=== PATIENT | male | born 1940 | race Caucasian/White ===

== ENCOUNTER 2021-11-09 20:50 | Emergency (ER) | payer OTHER, SELFPAY ==
[2021-11-09 20:55] VITALS: BP 158/89; PULSE 91; RESP 18; TEMP 36.2; BMI 24.1
--- NOTE | 2021-11-09 21:47 | ED.WOUNDLAC ---
HPI - Wound/Laceration General Time Seen by Provider: 21:00 Date Seen: 11/09/21 Chief Complaint: Laceration/Wound Stated Complaint: Fall w/ arm lac Time Seen by Provider: 11/09/21 21:09 Source: patient, family and RN notes reviewed History of Present Illness HPI narrative: Marj is a very pleasant 80-year-old male with a history of Parkinson's disease and poor balance who fell tonight. Daughter states that her father was holding his arm when she arrived and she noted tissue and blood on a comforter. She then saw that he had a laceration that was large and C-shaped on his left forearm. Patient notes at this time that his pain is a 1. He has no numbness or tingling and he is able to move his arm without difficulty. He denies hitting his head and he is not have any neck pain. In regards to the fall he denies prodromal symptoms including chest pain, shortness of breath. He states that because of the Parkinson's is his balance is not good. He denies any other injury. Onset (ago): hour(s) Related Data Home Medications Medication Instructions Recorded Confirmed atorvastatin 20 mg tablet mg 11/09/21 carbidopa 25 mg-levodopa 100 mg tab 11/09/21 tablet prednisone 10 mg tablet mg 11/09/21 Allergies Allergy/AdvReac Type Severity Reaction Status Date / Time No Known Drug Allergies Allergy Verified 11/09/21 21:09 Review of Systems Narrative: Patient denies chest pain, shortness of breath, painful urination, cough, fever, headache, neck pain. [facility] Medical History (Updated 11/09/21 @ 23:13 by Porfirio Kay RN) No significant past medical history Surgical History (Updated 11/09/21 @ 23:14 by Porfirio Kay RN) No significant past surgical history Social History Smoking Status: Never smoker How often do you have a drink containing alcohol: never How often do you have six or more drinks on one occasion: Never AUDIT-C Alcohol total score: 0 Non-prescribed substance use: denies use Exam Narrative: Exam Narrative: Patient is alert and oriented. He is quite humerus. Answers questions appropriately. EOM is full. Head is atraumatic normocephalic. No pain with palpation over cervical midline. Heart with regular rate and rhythm and lungs are clear bilaterally. Palpation over the ribcage abdomen without discomfort. Abdomen is soft and nontender. Lower extremity show 1+ peripheral edema but no evidence of injury. On his left arm he has sustained a very large flap laceration measuring a total This is a full-thickness flap with underlying fascia covering muscle easily viewed. There did not appear to be any foreign bodies in this area. Const: Vital Signs, click to edit/add: Vital Signs - 24 hr 11/09/21 20:55 11/09/21 23:13 11/09/21 23:15 Temperature 97.2 F L 97.2 F L 97.2 F L Pulse Rate 89 Pulse Rate [Pulse Oximeter] 91 89 Respiratory Rate 18 18 18 Blood Pressure 135/79 Blood Pressure [Ri ght Upper Arm] 158/89 H 135/79 Course Vital Signs Vital signs: Initial Vital Signs Temperature 97.2 F L 11/09/21 20:55 Temperature Source Temporal Artery Scan 11/09/21 20:55 Pulse Rate 91 11/09/21 20:55 Respiratory Rate 18 11/09/21 20:55 Blood Pressure 158/89 H 11/09/21 20:55 Blood Pressure Mean 112 11/09/21 20:55 Blood Pressure Position Supine 11/09/21 20:55 Oxygen Delivery Method 11/09/21 20:55 Vital Signs Temperature 97.2 F L 11/09/21 20:55 Pulse Rate 91 11/09/21 20:55 Respiratory Rate 18 11/09/21 20:55 Blood Pressure 158/89 H 11/09/21 20:55 Temperature 97.2 F L 11/09/21 23:15 Pulse Rate 89 11/09/21 23:15 Respiratory Rate 18 11/09/21 23:15 Blood Pressure 135/79 11/09/21 23:15 MDM - Wound/Laceration MDM Narrative Medical decision making narrative: 1. Left forearm laceration-at this time patient has retained sensation and motor distally. He has significant ecchymosis in this area but is able to move his elbow without difficulty pronate and supinate. Do not feel a need to pursue x-rays at this time. Monitor for signs and symptoms of infection. Suture removal in 10 days time. Do not soak wound but may shower with wound in gently cleanse daily. 2. Fall-patient has no prodromal symptoms and unfortunately this is likely secondary to his parkinsonian syndrome. Patient is examined now that he is standing upright. No evidence of head trauma neck pain harrington on back. He has no new pain at this time. 3. Disposition-patient is discharged home in the care of his and his daughter. Medical Records Attestation: I reviewed the patient's medical records. Discharge Plan Discharge Clinical Impression: Laceration, Avulsion of skin Patient Disposition: Home w/ Parent or Adult Additional Instructions: Suture removal in 10 days time at the clinic. Monitor for infection. Seek medical attention for redness, drainage from the wound, fever or chills. Tylenol may be used as needed for discomfort. Return to the emergency room as needed. You may shower and gently pat this area dry. You can leave open to air as long as your not participating in activities in an unclean environment. If that is the case please cover. Prescriptions: No Action prednisone 10 mg tablet 0RF carbidopa-levodopa 25-100 mg tablet 0RF Label Comments: TAKE 1 TABLET BY MOUTH THREE TIMES DAILY BETWEEN 7AM AND 6PM atorvastatin 20 mg tablet 0RF Label Comments: TAKE 1 TABLET BY MOUTH AT BEDTIME Follow Up/Referrals: Dennys Colby MD [Primary Care Provider] - Stand Alone Forms: [facility] Info Instructions Procedures Laceration Laceration 1: Pre procedure diagnosis: Left dorsal forearm laceration Post procedure diagnosis: Left dorsal forearm laceration repair Site marking: not applicable Verification/time out: correct patient Name of person performing procedure: Rosana Jolley Site: upper extremity Size (cm): 17 Description: flap, irregular and clean Depth: simple, single layer (Involving the entire thickness of the skin.) Local Anesthetic: lidocaine 1% and with epi Amount of anesthesia used (mL): 6 Pre-repair: wound explored, irrigated extensively and deep structures intact Skin layer closed with: nylon Size (cm): 4-0 Number of sutures: 20 Technique: simple, interrupted Subcutaneous layer closed with: Vicryl Size: 4-0 and 5-0 Number of sutures: 7 Technique: simple, interrupted Conclusion: patient tolerated procedure
[2021-11-09 23:13] VITALS: BP 135/79; PULSE 89; RESP 18; TEMP 36.2
[2021-11-09 23:15] VITALS: BP 135/79; PULSE 89; RESP 18; TEMP 36.2
== END 2021-11-09 23:41 | disposition home or self-care (01) ==
LOC: ED 23:36
PROVIDERS: Emergency Provider Family Medicine; PCP Physician Assistant Medical
DX: S51.812A Laceration without foreign body of left forearm, initial encounter (principal); W18.00XA Striking against unspecified object with subsequent fall, initial encounter
CPT/HCPCS: 12002; 99283; 99284

== ENCOUNTER 2021-12-10 10:44 | Outpatient (CLI) | payer OTHER, SELFPAY ==
[2021-12-10 13:34] LABS: Chloride* 108 mmol/L (96-114); Potassium* 3.9 mmol/L (3.6-5.1); Sodium* 139 mmol/L (135-149)
[2021-12-10 13:37] LABS: Aspartate Amino Transferase* 24 U/L (12-35); Blood Urea Nitrogen* 24 mg/dL (7-30); Carbon Dioxide* 24 mmol/L (20-32); Estimated Glomerular Filt Rate 76 ml/min; Glucose* 125 mg/dL (60-115)
[2021-12-10 14:06] LABS: PSA Screen* 3.56 ng/mL (0.10-4.00)
[2021-12-11 10:57] LABS: LDL Cholesterol, Direct 81 mg/dL (0-129)
== END 2021-12-10 10:45 | disposition home or self-care (01) ==
PROVIDERS: PCP Physician Assistant Medical; Visit Provider Family Medicine
DX: G20 Parkinson's disease (principal); E78.5 Hyperlipidemia, unspecified; C61 Malignant neoplasm of prostate; L21.9 Seborrheic dermatitis, unspecified; B35.6 Tinea cruris
CPT/HCPCS: 80048; 83721; 84153; 84450

== ENCOUNTER 2022-02-17 12:43 | Outpatient (CLI) | payer OTHER, SELFPAY ==
--- NOTE | 2022-02-17 13:00 | CRLHL7_ITS ---
For Patients: As a result of the Century Cures Act, medical imaging exams and procedure reports are released immediately into your electronic medical record. You may view this report before your referring provider. If you have questions, please contact your health care provider. INDICATION: Parkinson`s TECHNIQUE: Noncontrast Sagittal T1,Axial FSE T2, Flair, DWI images submitted. No comparisons. FINDINGS: Moderate cerebral atrophy. The ventricles, sulci and gyri are of normal size, shape and contour for age and degree of atrophy. Midline structures are centrally located. No convincing evidence of suspicious intra- or extra-axial fluid collections. Moderate patchy regions of increased T2 signal within the periventricular and subcortical white matter of both cerebral hemispheres. On the diffusion-weighted sequences, there is evidence of T2 shine through within 2 lesions in the left posterior centrum semiovale. No convincing regions of restricted diffusion. IMPRESSION: 1. No convincing radiographic evidence of acute intracranial abnormalities. 2. Moderate cerebral atrophy. 3. Moderate supratentorial white matter changes that are non-specific, but statistically most likely related to chronic small vessel ischemic disease. Dictated by Claudio Collins MD @ 02/17/2022 2:08:46 PM (Electronically Signed)
== END 2022-02-17 12:44 | disposition home or self-care (01) ==
LOC: MRI 12:44
PROVIDERS: PCP Physician Assistant Medical; Visit Provider Psychiatry & Neurology Neurology
DX: G20 Parkinson's disease (principal); G31.9 Degenerative disease of nervous system, unspecified; I67.82 Cerebral ischemia
CPT/HCPCS: 70551

== ENCOUNTER 2022-06-17 11:14 | Outpatient (CLI) | payer OTHER, SELFPAY ==
[2022-06-17 14:44] LABS: PSA Screen* 4.59 ng/mL (0.10-4.00)
== END 2022-06-17 11:15 | disposition home or self-care (01) ==
LOC: FRMREF 11:14
PROVIDERS: PCP Physician Assistant Medical; Visit Provider Physician Assistant Medical
DX: C61 Malignant neoplasm of prostate (principal)
CPT/HCPCS: 84153

== ENCOUNTER 2022-11-21 16:58 | Inpatient (IN) | payer OTHER, SELFPAY ==
[2022-11-21] VITALS (16 sets, daily range): BP systolic 121–180; BP diastolic 62–100; PULSE 67–102; RESP 18–22; TEMP 36.5–36.9; O2SAT 92–98; BMI 25.4
--- NOTE | 2022-11-21 17:14 | ED.GENADULT ---
HPI - General Adult General Chief complaint: Seizure Stated complaint: Seizure Time Seen by Provider: 11/21/22 17:14 History of Present Illness HPI narrative: history of parkinson's, non verbal. lives in assisted living with partner. history of seizures with unknown etiology. no plans or meds for recurrent seizures. last seizure 3 months ago. today has had 3 81-year-old man presenting to the emergency department with his daughter with a concern of a seizure. Actually noting 3 episodes today. Underlying history of Parkinson's versus supraventricular palsy. Daughter shortly before arrival was attending to him in his assisted living residence where he was sitting in his wheelchair and suddenly catching his breath in and stiffening. He was unresponsive. She thinks that this episode may have lasted as long as 2 minutes but admits she was a little flustered; my paraphase. She called help and apparently took 45 minutes for any staff to arrive. Otherwise was in usual state of health which does include nonverbal Parkinson's. He had however had 2 episodes earlier in the day 1 of which while attempting to ambulate with his walker and did go down. Was not observed to have hit his head. Apparently does have a history of seizure-like events. Was admitted in March of last year to [facility] for unresponsive episodes. Reviewing the discharge summary did have and unremarkable MRI at that time. And apparently, per daughter, Mr. Lee bah has made the decision not to be treated for potential seizures. At this point given this being the 3rd episode today this concern of him actually being able to be in his current place of residence. Has in the past he is even more out of it than associated with usual parkinsonian dementia. Reviewing consultation from last clinic visit in June suggestion was made though that if he had further episodes to initiate levetiracetam. Does have a history of frequent falls in the setting of suspected Parkinson's. Resides with spouse who has Parkinson's. Related Data Home Medications Medication Instructions Recorded Confirmed cholecalciferol (vitamin D3) 125 5,000 unit PO DAILY 12/10/21 11/22/22 mcg (5,000 unit) tablet Previous Rx's Medication Instructions Recorded atorvastatin 20 mg tablet 20 mg PO QPM #90 tabs 12/10/21 carbidopa 25 mg-levodopa 100 mg 1 tab PO TID #270 tabs 12/10/21 tablet metronidazole 1 % topical gel 1 applic topical QDAY #60 grams 10/09/22 acetaminophen 325 mg tablet 650 mg (2 x 325 mg) PO QID PRN 11/25/22 #100 tabs levetiracetam 500 mg tablet 500 mg PO BID #60 tabs 11/25/22 nystatin 100,000 unit/gram topical 1 applic topical TID #45 grams 11/25/22 cream omeprazole 20 mg capsule,delayed 20 mg PO DAILY@0700 #30 caps 11/25/22 release Allergies Allergy/AdvReac Type Severity Reaction Status Date / Time No Known Drug Allergies Allergy Verified 11/18/22 10:27 Review of Systems Status of ROS: Reports: unobtainable due to medical condition [facility] Medical History (Updated 11/26/22 @ 00:01 by Background Daerica) Episode of altered consciousness ?R40.4 - Transient alteration of awareness (ICD-10) Snoring ?R06.83 - Snoring (ICD-10) GI bleed ?K92.2 - Gastrointestinal hemorrhage, unspecified (ICD-10) Altered mental status ?R41.82 - Altered mental status, unspecified (ICD-10) Seizure disorder ?G40.909 - Epilepsy, unspecified, not intractable, without status epilepticus (ICD-10) Repeated falls ?R29.6 - Repeated falls (ICD-10) Gait instability ?R26.81 - Unsteadiness on feet (ICD-10) Parkinson's disease ?G20 - Parkinson's disease (ICD-10) 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 - Progressive supranuclear ophthalmoplegia [Tobkqg-Kfafvncyjd-Bylvmnnio] (ICD-10) History of stroke ?Z86.73 - Personal history of transient ischemic attack (TIA), and cerebral infarction without residual deficits (ICD-10) Seborrheic dermatitis ?L21.9 - Seborrheic dermatitis, unspecified (ICD-10) Malignant neoplasm of prostate ?C61 - Malignant neoplasm of prostate (ICD-10) Hyperlipidemia ?E78.5 - Hyperlipidemia, unspecified (ICD-10) Herpes zoster ?B02.9 - Zoster without complications (ICD-10) Back pain ?M54.9 - Dorsalgia, unspecified (ICD-10) Surgical History History of total right knee replacement ?Z96.651 - Presence of right artificial knee joint (ICD-10) No significant past surgical history Family History Mother Cancer Father Renal failure Uncle Renal failure Social History (Updated 11/21/22 @ 20:24 by Gerber Cade MD) Narrative: Lives in assisted living, [place], [place], with his significant other, Ellie. has 2 children- 1 son, 1 daughter. Daughter, Elda Espinoza) is POA, cell phone [phone]. Has DNR/DNI resuscitation status. former smoker. regular alcohol consumption- 2-4 beers. What is your current living situation?: I presently have a place to live Problems where you live: unable to answer Problems where you live details: [facility] In the past 12 months, utilities in danger of being shut off: unable to answer In the past 12 mos, have been you worried that your food would run out before you had money to buy more?: unable to answer In the past 12 mos, the food you bought just didn't last and you didn't have money to buy more?: unable to answer Highest level of school completed/degree received: Bachelor's degree Smoking Status: Former smoker Do you use any of these nicotine containing products: None Second hand tobacco smoke exposure: No How often do you have a drink containing alcohol: never How often do you have six or more drinks on one occasion: Never AUDIT-C Alcohol total score: 0 Non-prescribed substance use: denies use Caffeine: Yes How often does anyone, including family, friends and others, physically hurt you: unable to answer How often does anyone, including family, friends and others, insult or talk down to you: unable to answer How often does anyone, including family, friends and others, threaten you with harm: unable to answer How often does anyone, including family, friends and others, scream or curse at you: unable to answer Little interest or pleasure in doing things: more than half the days service: No Exam Narrative: Exam Narrative: Blunted affect. Frequently closes eyes has of tired. Breathing easily. Does at 1 point started coughing due to what appears to be some congestion in his throat. Lungs appear to be clear though not exactly coordinated effort along for optimal auscultation. CV is in a regular rate and rhythm. Lower extremities are without edema. Seems fatigued but alerts quickly to follow directions. While general little stiff is able to move all extremities without difficulty. Well perfused. Cranial nerves 2-12 look to be intact. Oropharynx is free of injury. Const: Vital Signs, click to edit/add: Vital Signs - 24 hr 11/21/22 17:05 11/21/22 17:57 11/21/22 18:00 Temperature 97.7 F Pulse Rate 70 67 Pulse Rate [Right Pulse Oximeter] 78 Respiratory Rate 18 Blood Pressure Blood Pressure [Ri ght Upper Arm] 128/86 Pulse Oximetry 93 92 94 Oxygen Delivery Me thod Room Air 11/21/22 18:02 11/21/22 18:15 11/21/22 18:30 Temperature Pulse Rate 73 78 79 Pulse Rate [Right Pulse Oximeter] Respiratory Rate Blood Pressure 124/67 Blood Pressure [Ri ght Upper Arm] Pulse Oximetry 94 95 98 Oxygen Delivery Me thod Documenting provider has reviewed patient's vital signs: yes Course Course Hospital Course: 81-year-old male admitted to the hospital having had 3 episodes of loss of consciousness prior to admission. Patient had observed episodes where he lost consciousness, became rigid but without shaking. These were all while he was upright and they were all self-limited. Had similar episodes where he was hospitalized at [facility] last winter and had an unremarkable EEG at that time. After consultation with Neurology decision was made to initiate Keppra for possible seizure disorder. He was observed in the hospital without further episodes. He was however found to be fairly disabled from neurologic disease and felt that he needed a higher level of care. 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 Clinically it appears that he has progressive supranuclear palsy as the primary cause of his disability. In light of this he he and his daughter have agreed to moved to palliative care and our enrolling in hospice. A time admission he was found to have melanotic stools that were guaiac positive. Hemoglobin is monitored and had a small drop in his hemoglobin but no significant hypotension. Initial plan was to evaluate with upper endoscopy but after discussion with his daughter about goals of care the decision was made to simply treat him for upper GI bleeding with a proton pump inhibitor and to stop his aspirin and ibuprofen. No further evaluation at this time is warranted. Vital Signs Vital signs: Initial Vital Signs Temperature 97.7 F 11/21/22 17:05 Temperature Source Temporal Artery Scan 11/21/22 17:05 Pulse Rate 78 11/21/22 17:05 Respiratory Rate 18 11/21/22 17:05 Blood Pressure 128/86 11/21/22 17:05 Blood Pressure Mean 100 11/21/22 17:05 Blood Pressure Position Sitting 11/21/22 17:05 Pulse Oximetry 93 11/21/22 17:05 Oxygen Delivery Method Room Air 11/21/22 17:05 Vital Signs Temperature 97.7 F 11/21/22 17:05 Pulse Rate 78 11/21/22 17:05 Respiratory Rate 18 11/21/22 17:05 Blood Pressure 128/86 11/21/22 17:05 Pulse Oximetry 93 11/21/22 17:05 Oxygen Delivery Method Room Air 11/21/22 17:05 Temperature 98.3 F 11/25/22 11:05 Pulse Rate 85 11/25/22 11:05 Respiratory Rate 18 11/25/22 11:05 Blood Pressure 140/77 H 11/25/22 11:05 Pulse Oximetry 96 11/25/22 11:05 Oxygen Delivery Method Room Air 11/25/22 11:05 Medical Decision Making MDM Narrative Medical decision making narrative: It sounds as though he would be unsafe to go back to current living situation at the moment. I would anticipate admission. Will evaluate though for other abnormalities in the labs. Looking for sources of infection, potential sepsis. Given recent imaging lack of recent head injury do not think that further head imaging is necessary. Unclear to me if this is one of those undefinable episodes not infrequent in Parkinson's (though on review of records it looks like supranuclear palsy is a leading/likely diagnosis) or whether more of a seizure-like activity. In March of last year EEG testing was unremarkable. Would want to evaluate for potential aspiration event. Chest x-ray by my read is unremarkable. No events on digital cartographic technician. Labs are overall reassuring. Urine is concentrated but without evidence of infection. Discussed with hospitalist for admission further evaluation. Medical Records Medical records reviewed: Yes I reviewed the patient's medical records Lab Data Lab results reviewed: Yes I reviewed the patient's lab results Labs: Lab Results 11/21/22 11/21/22 Range/Units 10:30 18:02 WBC 8.28 (4.50-11.00) K/uL RBC 4.17 L (4.30-5.90) m/uL Hgb 12.7 L (13.5-17.5) gm/dL Hct 37.3 (37.0-53.0) % MCV 89 (80-100) fL MCH 31 (26-34) pg MCHC 34 (32-36) gm/dL RDW Coeff of Alyssa 14.3 (11.5-15.5) % Plt Count 171 (140-440) K/uL Neut % (Auto) 85.6 H (42.0-72.0) % Lymph % (Auto) 8.6 L (20-44) % [place] % (Auto) 5.3 (0.0-11.0) % Eos % (Auto) 0.0 (0.0-7.0) % Baso % (Auto) 0.0 (0.0-3.0) % Neut # (Auto) 7.10 H (1.7-7.0) K/uL Lymph # (Auto) 0.70 L (0.90-2.90) K/uL [place] # (Auto) 0.40 (0.00-0.90) K/UL Eos # (Auto) 0.00 (0.00-0.50) K/uL Baso # (Auto) 0.00 (0.00-0.30) K/uL Abs Immat Gran (auto) 0.04 (0.00-0.30) K/uL Imm/Tot Granulo (auto) 0.5 % Diff Slide Review Acceptable Review (Acceptable) VBG pH 7.397 (7.32-7.43) VBG pCO2 35 L (40-50) mmHG VBG pO2 27.8 (25-47) mmHG VBG HCO3 22 (21-28) mmol/L Sodium 138 (135-149) mmol/L Potassium 3.9 (3.6-5.1) mmol/L Chloride 110 (96-114) mmol/L Carbon Dioxide 20 (20-32) mmol/L BUN 47 H (7-30) mg/dL Creatinine 1.0 (0.5-1.5) mg/dL Estimated GFR 75 ml/min Glucose 151 H (60-115) mg/dL Lactate 1.7 (0.5-1.9) mmol/L Calcium 9.1 (8.4-10.6) mg/dL Magnesium 1.8 (1.5-2.6) mg/dL Troponin I 0.02 (0.01-0.04) ng/mL C-Reactive Protein 0.7 (0.5-1.0) mg/dL NT-Pro-B Natriuret Pep 141 pg/mL Urine Color Yellow (Yellow) Urine Appearance Clear (Clear) Urine pH 5.5 (5.0-8.5) Ur Specific [place] >= 1.030 (1.000-1.030) Urine Protein Negative (Negative) Urine Glucose (UA) Negative (Negative) Urine Ketones Negative (Negative) Urine Blood Negative (Negative) Urine Nitrite Negative (Negative) Urine Bilirubin Negative (Negative) Urine Urobilinogen 0.2 (0.2-1.0) Ur Leukocyte Esterase Negative (Negative) Urine RBC 0-2 (0-2) Urine WBC 0-2 (0-5) Ur Squamous Epith Cells None (None-Few) Urine Bacteria None (None) Urine Yeast Few A (None) ECG Data Attestation: I personally reviewed and interpreted this ECG as follows: (Normal sinus LVH? rate of 75) Discharge Plan Discharge Clinical Impression: Episode of altered consciousness Patient Disposition: Admitted As Observation Condition: Stable Activity Level: Up with assist and Use Walker Discharge Diet: Regular
--- NOTE | 2022-11-21 17:41 | CRLHL7_ITS ---
For Patients: As a result of the Century Cures Act, medical imaging exams and procedure reports are released immediately into your electronic medical record. You may view this report before your referring provider. If you have questions, please contact your health care provider. INDICATION: Look for aspiration pneumonia TECHNIQUE: Chest 1 view. COMPARISON: None. FINDINGS: Cardiovascular and mediastinum: Heart size and vasculature are normal in caliber and appearance. Mediastinum is within normal limits. Lungs and pleural space: Lungs are clear. No sign of infiltrate or mass. No sign of pleural effusion. No pneumothorax. Bones and soft tissues: No significant findings. IMPRESSION: Unremarkable chest. Dictated by: Shekhar Adan MD @ 11/21/2022 18:08:20 (Electronically Signed)
--- OUTSIDE RECORDS SUMMARY | 2022-11-21 17:52 | XMS_ITS | Continuity of Care Document ---
Author Name Unknown Organization [facility] Address [address] [place] [address] Phone Care Team Providers Care Manager Paper Name Role Phone Dennis Verdin Unavailable Unavailable Allergies, Adverse Reactions, Alerts Substance Reaction Status Criticality No Known Allergies Active No Inform ation Medications Medication Instructions Dosage Effective Dates (start - stop) Status Comments CARBIDOPA-LEVODOPA (unknown strength) Not Available - Active ATORVASTATIN CALCIUM (unknown strength) Not Available - Active Procedures Procedure Date Office/Outpatient Visit,[facility] 2020 Advance Directives Directive Yes / No Effective Date File Name No Information Encounters Encounter Description Practice Location Reason(s) For Visit Diagnoses Date Provider Providers Copied on Encounter Office/Outpati ent Visit,[facility], [address], [place], [place], [id number], [place] tel:[phone] [facility] [place] Other spondylosis , lumbar regionLow back pain Zi Collins. [facility], [address] [place] [address], [place] [address], [place], [place], [id number], [place]. tel:[phone] Referring Provider: Dennis Meza, [facility] [address], [facility] [address], [place], [address]. tel:[phone] Family History Family Member Type Diagnosis Age At Onset No Information Payers Payer name Insurance type Covered constitution party ID Authoriza tion(s) [employer] Medicare Gold Choice Rin CHEEMA [id number] Social History Type Description Quantity Date Captured Comments Alcohol Use Details Unknown Caffeine Use Details Unknown Tobacco Use Status Ex-cigarette smoker Smoking Status Former smoker Smoking Tobacco Use Details Cigarette: No Details Available Cigarette: No Details Available Sex Male Vital Signs Date / Time: Height Weight BMI Pulse Rate Blood Pressure Temperature Respiratory Rate Body Surface Area Head Circumference Head Circ. Percentile Wt./Chaka. Percentile BMI percentile Pulse Ox Inhaled Ox 10:29 AM 65.00 in 77.927 kg (171.80 lbs) 28.5 9 kg/m eter (2) Chief Complaint And Reason For Visit No Information Reason For Referral Reason For Referral No Information History Of Present Illness Encounter Date Complaint History Of Prese nt Illness No Information Functional Status Date Functional Assessmen t No Information Instructions Date Instruction Additional Infor mation No Information Assessments Type Assessment Date assessment Other spondylosis, lumbar region assessment Low back pain Patient Care Teams Name Effective Dates (start - stop) Status Members No Information
--- OUTSIDE RECORDS SUMMARY | 2022-11-21 17:52 | XMS_ITS | Continuity of Care Document ---
Author Name Unknown Organization [facility] Address [address] [place] [address] Phone Care Team Providers Care Blank Driller Name Role Phone Dennis Verdin Unavailable Unavailable Allergies, Adverse Reactions, Alerts Substance Reaction Status Criticality No Known Allergies Active No Inform ation Medications Medication Instructions Dosage Effective Dates (start - stop) Status Comments CARBIDOPA-LEVODOPA (unknown strength) Not Available - Active ATORVASTATIN CALCIUM (unknown strength) Not Available - Active Procedures Procedure Date Office/Outpatient Visit,[facility] 2020 Advance Directives Directive Yes / No Effective Date File Name No Information Encounters Encounter Description Practice Location Reason(s) For Visit Diagnoses Date Provider Providers Copied on Encounter Office/Outpati ent Visit,[facility], [address], [place], [place], [id number], [place] tel:[phone] [facility] [place] Other spondylosis , lumbar regionLow back pain Zi Collins. [facility], [address] [place] [address], [place] [address], [place], [place], [id number], [place]. tel:[phone] Referring Provider: Dennis Meza, [facility] [address], [facility] [address], [place], [address]. tel:[phone] Family History Family Member Type Diagnosis Age At Onset No Information Payers Payer name Insurance type Covered green party ID Authoriza tion(s) [employer] Medicare Gold Choice Rin CHEEMA [id number] Social History Type Description Quantity Date [...]
[2022-11-21] MEDS: 0.9 % SODIUM CHLORIDE 1000 ml 1,000 ML IV (17:54)
[2022-11-21 18:11] LABS: HCO3 VBG 22 mmol/L (21-28); Lactate* 1.7 mmol/L (0.5-1.9); PCO2 VBG 35 mmHG (40-50); PO2 VBG 27.8 mmHG (25-47); pH VBG 7.397 (7.32-7.43)
[2022-11-21 18:18] LABS: Hematocrit 37.3 % (37.0-53.0); Hemoglobin* 12.7 gm/dL (13.5-17.5); Immature Granulocytes Abs Auto 0.04 K/uL (0.00-0.30); Immature Granulocytes Pct Auto 0.5 %; Lymphocytes Percent Auto 8.6 % (20-44); Mean Corpuscular HGB Conc 34 gm/dL (32-36); Mean Corpuscular Hemoglobin 31 pg (26-34); Mean Corpuscular Volume 89 fL (80-100); Monocytes Percent Auto 5.3 % (0.0-11.0); Neutrophils Percent Auto 85.6 % (42.0-72.0); Platelet Count* 171 K/uL (140-440); RDW Coefficient of Variation % 14.3 % (11.5-15.5); Red Blood Count 4.17 m/uL (4.30-5.90); White Blood Count* 8.28 K/uL (4.50-11.00)
[2022-11-21 18:20] LABS: Slide Review Reflex Yes
[2022-11-21 18:29] LABS: Chloride* 110 mmol/L (96-114); Potassium* 3.9 mmol/L (3.6-5.1); Sodium* 138 mmol/L (135-149)
[2022-11-21 18:31] LABS: Estimated Glomerular Filt Rate 75 ml/min
[2022-11-21 18:32] LABS: Blood Urea Nitrogen* 47 mg/dL (7-30); Carbon Dioxide* 20 mmol/L (20-32)
[2022-11-21 18:33] LABS: Calcium* 9.1 mg/dL (8.4-10.6); Glucose* 151 mg/dL (60-115); Magnesium* 1.8 mg/dL (1.5-2.6)
[2022-11-21 18:35] LABS: C Reactive Protein* 0.7 mg/dL (0.5-1.0)
[2022-11-21 18:44] LABS: Troponin I* 0.02 ng/mL (0.01-0.04)
--- NOTE | 2022-11-21 18:47 | ED.NURSE ---
christiane garibay aware of admission.
[2022-11-21 18:50] LABS: NT Pro B Type NatriureticPept* 141 pg/mL
[2022-11-21 19:12] LABS: Slide Review Acceptable Review (Acceptable)
--- NOTE | 2022-11-21 19:51 | ED.NURSE ---
report was given to trino ellison. admission on hold for now as dr hooper spoke to Elda about admission as she is wanting a neuro consult.
--- NOTE | 2022-11-21 20:59 | PM.IMHP1 ---
Hospitalist- H&P: GABRIELA History of Present Illness Time Seen by Provider: 19:30 Date Seen: 11/21/22 Chief complaint: Seizure Narrative: Valerio Malik is a 81 year old man who was in his usual state of health until this morning. His usual state of health is fragile. He is known to have progressive supranuclear palsy verses Parkinson's disease. He is known to have frequent falls. Very unsteady gait. At times uses wheelchair for locomotion. Becoming progressively less verbal. He lives in a assisted living facility called [facility] in [place], [place], with his significant other, Ellie. His daughter, Elda, is his power of divorce attorney for health. This morning around 0830 he was sitting on the toilet. His significant other, Ellie, heard him gasping in the bathroom. She went to assess him and found him with his head tilted backward, gasping type breathing, unresponsive. Did not have clonic movements. She described more of a tonic posturing. He did not fall. Did not strike his head. Had no injuries. Episode lasted less than 3 minutes. Subsequently had decreased awareness and interaction for roughly 10 minutes. There was no on else around to witness or help during this episode. Obviously this episode occurred as he was in the process of urinating and or defecating. This afternoon around 1330 he seemed to have another similar episode. he was in the process of walking from the living room and suddenly fell. Again his neck arched backwards And he seemed to gasp as he was breathing. this time there was staff from the assisted living facility available to help. Staff subsequently helped him into his wheelchair. Again he had less awareness and interaction for a period of time subsequent to this episode. Reportedly did not have any micturition or defecation with this episode. Sometime between 1500 and 1530 this afternoon he had another episode. This episode was witnessed again by Ellie, the patient's daughter, Elda, and Ellie's daughter, Jen. again he had a episode of neck arching with gasping breathing. Episode lasted less than 3 minutes. Subsequently had 10 minutes of decreased responsiveness with eyes closed. No reported micturition or defecation with this episode. At this juncture the family opted to have him further assessed. He was thus transported to the emergency department at [facility]. In March 2022 patient had a similar episode. Was unresponsive, staring straight ahead, for about 45 minutes. No recall of the episode. Admitted to [facility]. Prolonged EEG monitoring for 32 hours was negative. Cause of spell was unclear. Decision was made to follow clinically. His daughter, Elda, believes that the patient may have had a similar episode subsequent to that when he was in a transitional care unit after that particular hospitalization. Patient was seen by his neurologist, Dr. Lloyd Luis, [facility], 07/02/2022. MRI on that date demonstrated mid brain atrophy consistent with progressive supranuclear palsy. 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 At that time the decision was made to continue to monitor him but if he should have another spell Dr. Luis recommended initiation of the levetiracetam. Has not had any recent unusual trauma or injury aside from the occasional falling that he has. No head injuries. No fevers, rigors, diaphoresis. No dysuria, urgency, frequency, hematuria. No diarrhea or constipation. No skin infections. No cough or shortness of breath. No other focal or localizing symptoms. Review of Systems Status of ROS: Reports: 10 or more systems reviewed and unremarkable except as noted in History and below Narrative: Ellie and Jen note that over the last 2 weeks he has been having more episodes and lasting longer when he does not seem to be tracking. He has had these episodes for some time but they seem to be increasing in frequency and duration over the last 2 weeks. [facility] Medical History (Updated 11/21/22 @ 21:38 by Gerber Cade MD) Repeated falls ?R29.6 - Repeated falls (ICD-10) Gait instability ?R26.81 - Unsteadiness on feet (ICD-10) Parkinson's disease ?G20 - Parkinson's disease (ICD-10) 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 - Progressive supranuclear ophthalmoplegia [[id number]-[id number]] (ICD-10) History of stroke ?Z86.73 - Personal history of transient ischemic attack (TIA), and cerebral infarction without residual deficits (ICD-10) Seborrheic dermatitis ?L21.9 - Seborrheic dermatitis, unspecified (ICD-10) Malignant neoplasm of prostate ?C61 - Malignant neoplasm of prostate (ICD-10) Hyperlipidemia ?E78.5 - Hyperlipidemia, unspecified (ICD-10) Herpes zoster ?B02.9 - Zoster without complications (ICD-10) Back pain ?M54.9 - Dorsalgia, unspecified (ICD-10) Surgical History History of total right knee replacement ?Z96.651 - Presence of right artificial knee joint (ICD-10) No significant past surgical history Family History Mother Cancer Father Renal failure Uncle Renal failure Social History (Updated 11/21/22 @ 20:24 by Gerber Cade MD) Narrative: Lives in [place], [place], with his significant other, Ellie. has 2 children- 1 son, 1 daughter. Daughter, Elda Espinoza) is POA, cell phone [phone]. Has DNR/DNI resuscitation status. former smoker. regular alcohol consumption- 2-4 beers. What is your current living situation?: I presently have a place to live Problems where you live: unable to answer Problems where you live details: [facility] In the past 12 months, utilities in danger of being shut off: unable to answer In the past 12 mos, have been you worried that your food would run out before you had money to buy more?: unable to answer In the past 12 mos, the food you bought just didn't last and you didn't have money to buy more?: unable to answer Highest level of school completed/degree received: Bachelor's degree Smoking Status: Former smoker Do you use any of these nicotine containing products: None Second hand tobacco smoke exposure: No How often do you have a drink containing alcohol: never How often do you have six or more drinks on one occasion: Never AUDIT-C Alcohol total score: 0 Non-prescribed substance use: denies use Caffeine: Yes How often does anyone, including family, friends and others, physically hurt you: unable to answer How often does anyone, including family, friends and others, insult or talk down to you: unable to answer How often does anyone, including family, friends and others, threaten you with harm: unable to answer How often does anyone, including family, friends and others, scream or curse at you: unable to answer Little interest or pleasure in doing things: more than half the days service: No Meds Home Medications and Allergies Home Medications Medication Instructions Recorded Confirmed Type cholecalciferol (vitamin D3) 125 5,000 unit PO DAILY 12/10/21 11/18/22 History mcg (5,000 unit) tablet ibuprofen 200 mg tablet (Advil) 400 mg PO Q8H PRN 12/10/21 11/18/22 History aspirin 81 mg tablet,delayed 81 mg PO QDAY 11/18/22 11/21/22 History release Allergies Allergy/AdvReac Type Severity Reaction Status Date / Time No Known Drug Allergies Allergy Verified 11/18/22 10:27 Exam Narrative: Exam Narrative: Examine the patient as he is laying in a semi recumbent position on the exam table in the emergency department. He appears comfortable and in no acute distress. Speaks in a very soft, quiet voice. Able to answer only a few questions with yes and no. Does not speak in sentences. Appears somewhat anxious. Keeps changing his position. Vision and hearing are grossly normal. Alert and oriented to self, recognizes Ellie and Jen. Able to tell me he is in the hospital. Not oriented to time or situation. Does not know how he ended up here in the hospital. Tympanic membranes are normal. Midline nasal septum. Dry buccal mucosa. Dentition in only fair repair. No obvious tongue or mucosal lesions. Smell of breath is very strong consistent with dehydrated state. No icterus or conjunctival injection. Neck is supple. Midline trachea. No JVD, hepatojugular reflux, or carotid bruits. No head neck lymphadenopathy. Lungs are clear to auscultation. Chest wall excursions are full. No tenderness to percussion over his spine or CVA area. Heart tones with regular rhythm, normal S1-S2, without murmur, gallop, or rub. Abdomen with active bowel sounds, soft, nontender. No organomegaly or masses. Extremities without edema. Does have superficial skin abrasion over the left kneecap. Has a few areas of scattered ecchymosis on lower extremities. Moves joints of fingers, wrists, elbows, shoulders, hips, knees, ankles, and toes. Generally speaking, tone is increased to movement. Follows simple 1 step commands. Cranial nerves 3-12 grossly normal. Const: Vital Signs, click to edit/add: Vital Signs - 24 hr 11/21/22 17:05 11/21/22 17:57 11/21/22 18:00 Temperature 97.7 F Pulse Rate 70 67 Pulse Rate [Right Pulse Oximeter] 78 Respiratory Rate 18 Blood Pressure Blood Pressure [Ri ght Upper Arm] 128/86 Pulse Oximetry 93 92 94 [facility] 11/21/22 18:02 11/21/22 18:15 11/21/22 18:30 Temperature Pulse Rate 73 78 79 Pulse Rate [Right Pulse Oximeter] Respiratory Rate Blood Pressure 124/67 Blood Pressure [Ri ght Upper Arm] Pulse Oximetry 94 95 98 [facility] 11/21/22 18:34 11/21/22 18:45 11/21/22 19:00 Temperature Pulse Rate 78 82 79 Pulse Rate [Right Pulse Oximeter] Respiratory Rate Blood Pressure Blood Pressure [Ri ght Upper Arm] Pulse Oximetry 98 97 97 [facility] 11/21/22 19:05 11/21/22 20:08 Temperature Pulse Rate 81 92 Pulse Rate [Right Pulse Oximeter] Respiratory Rate Blood Pressure 131/76 Blood Pressure [Ri ght Upper Arm] Pulse Oximetry 97 94 [facility] - H&P: Result Labs Labs: Short CBC 11/21/22 Range/Units 18:02 WBC 8.28 (4.50-11.00) K/uL Hgb 12.7 L (13.5-17.5) gm/dL Hct 37.3 (37.0-53.0) % Plt Count 171 (140-440) K/uL BMP 11/21/22 18:02 Sodium 138 Potassium 3.9 Chloride 110 Carbon Dioxide 20 BUN 47 H Creatinine 1.0 Glucose 151 H Calcium 9.1 Cardiac Enzymes 11/21/22 Range/Units 18:02 Troponin I 0.02 (0.01-0.04) ng/mL ECG Attestation: I personally reviewed and interpreted this ECG as follows: ECG interpretation date: 11/21/22 ECG interpretation time: 19:30 Prior ECG tracings: not available for review Interpretation: Normal sinus rhythm. Minimal voltage criteria for LVH. T-wave inversion inferolaterally. Imaging Chest x-ray: Attestation: I have reviewed the pertinent imaging results. Radiologist's impression: Unremarkable for any acute findings. Assessment and Plan Assessment and plan (1) Episode of altered consciousness: Problem comment: Three episodes today. With prior history, differential diagnosis includes seizure, orthostatic autonomic event, syncope, and even REM sleep disorder versus narcolepsy with cataplexy. Doubt TIA, migraine, psychogenic nonepileptic seizure. The fact that the 3 episodes today occurred when he was either sitting or standing make me highly suspicious that this is related to orthostasis. Status: Acute (2) Snoring: Problem comment: Known history of obstructive sleep apnea. Snoring reportedly occurred with each of the 3 episodes that occurred on 11/21/2022. Status: Acute (3) Progressive supranuclear palsy: Problem comment: Following [facility]. Still not certain if progressive supranuclear palsy or Parkinson disease. MRI 07/02/2022 demonstrates midbrain atrophy, consistent with progressive supranuclear palsy. Status: Acute (4) Parkinson's disease: Problem comment: Following [facility]. Still not certain if progressive supranuclear palsy or Parkinson disease. MRI 07/02/2022 demonstrates midbrain atrophy, consistent with progressive supranuclear palsy. Status: Acute (5) Dehydration: Status: Acute Plan 1. Discussed with Dr. Shekhar Mcmanus, [facility] emergency department physician. He spoke with a neurologist who recommended initiation of a levetiracetam, close monitoring, keep follow-up appointment with his neurologist, Dr. Lloyd Luis, as planned, and notify Dr. Luis of current episodes in case Dr. Luis wants to change the plan for follow-up. Neurologist did not recommend additional tertiary care facility assessment and intervention at this time. 2. Levetiracetam 1000 mg IV loading dose tonight. 3. Tomorrow morning initiate levetiracetam 500 mg p.o. b.i.d.. 4. Telemetry. Neuro checks. Orthostatic blood pressure and pulse checks. 5. IV fluid rehydration. 6. Discussed with patient's daughter, Cheri, via telephone, cell phone [phone]. Cheri is agreeable with above stated plans and recommendations. 7. Continue with other supportive efforts. 8. Physical therapy, occupational therapy, clinical social work aide consultation. 9. His assisted living facility is not willing to accept him back at this time. Will need to consider possible alternative living situation as we monitor his response to our interventions over time. The facility may change their mind depending on how he responds to initiation of the levetiracetam. 10. Await urine analysis and urine culture results. 11. Monitor labs.
[2022-11-21] MEDS: SODIUM CHLORIDE 0.9 % (FLUSH) 10 ML SYRINGE 5 ML IVF (22:18)
[2022-11-21] MEDS: CARBIDOPA-LEVODOPA 25-100 TABLET 1 TAB PO (22:18)
[2022-11-21] MEDS: LACTATED RINGERS 500 ML 500 ML IV (22:19)
[2022-11-21] MEDS: 0.9 % SODIUM CHLORIDE 250 ml IV (23:31)
[2022-11-22] VITALS (8 sets, daily range): BP systolic 113–137; BP diastolic 60–72; PULSE 70–102; RESP 16–22; TEMP 36.3–36.9; O2SAT 93–96
--- NOTE | 2022-11-22 06:28 | PC.NURSE ---
Arrived to floor at 2044. Pt alert to self. Confused but pleasant and cooperative. At 2199 Pt started getting tachycardic, ECG done, MD aware, no change. VS otherwise stable. Groin in reddened and irritated, barrier cream applied. Pt denies pain. Neuro?s q4h. Inc of urine and stool. Turn and repo q2h. A2 w/ walker and gait belt to stand at side of bed. Bed alarm on. ?
[2022-11-22 07:16] LABS: Lactate* 0.8 mmol/L (0.5-1.9)
[2022-11-22 07:19] LABS: Hematocrit 31.4 % (37.0-53.0); Hemoglobin* 10.5 gm/dL (13.5-17.5); Mean Corpuscular HGB Conc 33 gm/dL (32-36); Mean Corpuscular Hemoglobin 30 pg (26-34); Mean Corpuscular Volume 90 fL (80-100); Platelet Count* 201 K/uL (140-440); White Blood Count* 10.08 K/uL (4.50-11.00)
[2022-11-22 07:21] LABS: Slide Review Reflex No
[2022-11-22 07:35] LABS: Albumin* 2.8 g/dL (3.3-5.0); Chloride* 112 mmol/L (96-114); Potassium* 3.6 mmol/L (3.6-5.1); Sodium* 139 mmol/L (135-149)
[2022-11-22 07:37] LABS: Est. Creatinine Clearance* 51.39; Estimated Glomerular Filt Rate 75 ml/min
[2022-11-22 07:38] LABS: Blood Urea Nitrogen* 36 mg/dL (7-30); Carbon Dioxide* 22 mmol/L (20-32); Glucose* 109 mg/dL (60-115); Phosphorus* 3.3 mg/dL (2.5-4.5)
[2022-11-22 07:39] LABS: Calcium* 8.5 mg/dL (8.4-10.6); Magnesium* 1.7 mg/dL (1.5-2.6)
[2022-11-22 07:41] LABS: C Reactive Protein* 4.4 mg/dL (0.5-1.0)
[2022-11-22 08:09] LABS: Thyroid Stimulating Hormone* 0.828 uIU/mL (0.270-4.20)
[2022-11-22] MEDS: CARBIDOPA-LEVODOPA 25-100 TABLET 1 TAB PO ×3 (09:28→21:04)
[2022-11-22] MEDS: ASPIRIN 81 MG TABLET EC PO (09:28)
[2022-11-22] MEDS: levETIRAcetam 500 MG TABLET PO ×2 (09:28→21:05)
[2022-11-22] MEDS: SODIUM CHLORIDE 0.9 % (FLUSH) 10 ML SYRINGE 5 ML IVF ×2 (09:33→21:05)
[2022-11-22 10:42] LABS: Appearance Urine Clear (Clear); Bilirubin Urine Negative (Negative); Blood Urine Negative (Negative); Color Urine Yellow (Yellow); Glucose Urine Negative (Negative); Ketones Urine Negative (Negative); Leukocyte Esterase Urine Negative (Negative); Nitrite Urine Negative (Negative); Protein Urine Negative (Negative); Specific Gravity Urine >= 1.030 (1.000-1.030); Urobilinogen Urine 0.2 (0.2-1.0); pH Urine 5.5 (5.0-8.5)
[2022-11-22 10:55] LABS: RBC Urine 0-2 (0-2); WBC Urine 0-2 (0-5)
--- NOTE | 2022-11-22 12:38 | PM.IMPN1 ---
Progress Note: A&P Assessment and plan (1) Seizure disorder: Problem details: Clinically suspected based on recurrent episodes of unresponsiveness. Initiated on Keppra 11/21/2022 Status: Suspected (2) Episode of altered consciousness: Problem details: Three episodes today. With prior history, differential diagnosis includes seizure, orthostatic autonomic event, syncope, and even REM sleep disorder versus narcolepsy with cataplexy. Doubt TIA, migraine, psychogenic nonepileptic seizure. The fact that the 3 episodes today occurred when he was either sitting or standing make me highly suspicious that this is related to orthostasis. Status: Acute (3) Snoring: Problem details: Known history of obstructive sleep apnea. Snoring reportedly occurred with each of the 3 episodes that occurred on 11/21/2022. Likely not protecting his airway when he was unconscious Status: Acute (4) Progressive supranuclear palsy: Problem details: Following [place]- neurology. Still not certain if progressive supranuclear palsy or Parkinson disease. MRI 07/02/2022 demonstrates midbrain atrophy, consistent with progressive supranuclear palsy. Status: Acute (5) Parkinson's disease: Problem details: Following [place]- neurology. Still not certain if progressive supranuclear palsy or Parkinson disease. MRI 07/02/2022 demonstrates midbrain atrophy, consistent with progressive supranuclear palsy. Status: Acute (6) Dehydration: Problem details: Dehydrated on admission. Status: Acute Plan Continue in hospital for monitoring for recurrent spells, assessment for cardiovascular causes of loss of consciousness, initiation of Keppra, assessment of ability to return to assisted living. Time Spent With Patient Total time spent: Total time spent today is 45 minutes, 35 minutes in coordination of care and discussing with patient and daughter and other providers ongoing evaluation management of these spells. Subjective Date Seen: 11/22/22 Interval history: 81-year-old male admitted to the hospital with recurrent episodes of loss of consciousness yesterday. See admission note for detailed account of these 3 episodes. Cause for these is not entirely clear but seizure and syncope continue to be considerations. Each episode occurred when he was in upright position. Primarily manifested by loss of consciousness and rigidity without clonic movements. Was at [facility] last winter with similar events in the neurologist felt that this was probably not a seizure with normal EEG evaluation. On this occasion however given the frequent recurrences recommended starting Keppra. Patient has a limited ability to give history. History is primarily obtained from his daughter. She notes that he has been followed by [facility] for presumed Parkinson's disease. There is apparently some question of progressive supranuclear palsy as well. He has had ongoing decline in his functional status. He still lives in his assisted living with his significant other. He is having increasing need for assistance in that environment. Today he reports no concerns. He is minimally verbal. No reports of further spells since admission Exam Narrative: Exam Narrative: He is sitting up in a chair and appears in no distress. Speaks minimally. Mostly understandable but very soft voice. Eyes appear normal. Extraocular movements are limited with no upward gaze. No facial asymmetry. Oropharynx is normal. Tongue is midline. Neck is supple without mass or adenopathy. Respirations are clear to auscultation. Fairly good extra air exchange in all lung simeon. Cardiovascular: S1, S2, regular rate and rhythm. Abdomen is soft without tenderness or mass. He is quite weak having difficulty repositioning himself in the chair. He is able to do [id number] with some delay/Aguilar S. No pronator drift. Strength is approximately equal and both upper extremities and lower extremities. Const: Vital Signs, click to edit/add: Vital Signs - 24 hr 11/21/22 17:05 11/21/22 17:57 11/21/22 18:00 Temperature 97.7 F Pulse Rate 70 67 Pulse Rate [Pulse Oximeter] Pulse Rate [Right Pulse Oximeter] 78 Pulse Rate [orthos tatic lying Pulse Oximeter] Respiratory Rate 18 Blood Pressure Blood Pressure [Le ft Arm] Blood Pressure [Ri ght Upper Arm] 128/86 Blood Pressure [or thostatic lying Le ft Arm] Blood Pressure [or thostatic sitting] Blood Pressure [or thostatic standing ] Pulse Oximetry 93 92 94 Oxygen Delivery Me thod Room Air 11/21/22 18:02 11/21/22 18:15 11/21/22 18:30 Temperature Pulse Rate 73 78 79 Pulse Rate [Pulse Oximeter] Pulse Rate [Right Pulse Oximeter] Pulse Rate [orthos tatic lying Pulse Oximeter] Respiratory Rate Blood Pressure 124/67 Blood Pressure [Le ft Arm] Blood Pressure [Ri ght Upper Arm] Blood Pressure [or thostatic lying Le ft Arm] Blood Pressure [or thostatic sitting] Blood Pressure [or thostatic standing ] Pulse Oximetry 94 95 98 Oxygen Delivery Me thod 11/21/22 18:34 11/21/22 18:45 11/21/22 19:00 Temperature Pulse Rate 78 82 79 Pulse Rate [Pulse Oximeter] Pulse Rate [Right Pulse Oximeter] Pulse Rate [orthos tatic lying Pulse Oximeter] Respiratory Rate Blood Pressure Blood Pressure [Le ft Arm] Blood Pressure [Ri ght Upper Arm] Blood Pressure [or thostatic lying Le ft Arm] Blood Pressure [or thostatic sitting] Blood Pressure [or thostatic standing ] Pulse Oximetry 98 97 97 Oxygen Delivery Me thod 11/21/22 19:05 11/21/22 20:08 11/21/22 21:13 Temperature 98.4 F Pulse Rate 81 92 Pulse Rate [Pulse Oximeter] 98 Pulse Rate [Right Pulse Oximeter] Pulse Rate [orthos tatic lying Pulse Oximeter] Respiratory Rate 22 Blood Pressure 131/76 Blood Pressure [Le ft Arm] 138/62 Blood Pressure [Ri ght Upper Arm] Blood Pressure [or thostatic lying Le ft Arm] Blood Pressure [or thostatic sitting] Blood Pressure [or thostatic standing ] Pulse Oximetry 97 94 97 Oxygen Delivery Me thod Room Air 11/21/22 21:41 11/21/22 23:52 11/21/22 23:55 Temperature 98.4 F Pulse Rate Pulse Rate [Pulse Oximeter] 102 H Pulse Rate [Right Pulse Oximeter] Pulse Rate [orthos tatic lying Pulse Oximeter] 100 Respiratory Rate 20 20 Blood Pressure Blood Pressure [Le ft Arm] 133/64 Blood Pressure [Ri ght Upper Arm] Blood Pressure [or thostatic lying Le ft Arm] 138/72 Blood Pressure [or thostatic sitting] 121/85 Blood Pressure [or thostatic standing ] 180/100 H Pulse Oximetry 96 96 Oxygen Delivery Me thod Room Air Room Air 11/21/22 23:59 11/22/22 03:39 11/22/22 07:00 Temperature 98.1 F 98.2 F Pulse Rate 99 Pulse Rate [Pulse Oximeter] 102 H 94 Pulse Rate [Right Pulse Oximeter] Pulse Rate [orthos tatic lying Pulse Oximeter] Respiratory Rate 20 16 Blood Pressure Blood Pressure [Le ft Arm] 131/65 119/70 Blood Pressure [Ri ght Upper Arm] Blood Pressure [or thostatic lying Le ft Arm] Blood Pressure [or thostatic sitting] Blood Pressure [or thostatic standing ] Pulse Oximetry 94 94 Oxygen Delivery Me thod Room Air Room Air 11/22/22 07:00 11/22/22 07:00 11/22/22 07:00 Temperature Pulse Rate 101 H Pulse Rate [Pulse Oximeter] 94 Pulse Rate [Right Pulse Oximeter] Pulse Rate [orthos tatic lying Pulse Oximeter] Respiratory Rate 16 16 Blood Pressure Blood Pressure [Le ft Arm] Blood Pressure [Ri ght Upper Arm] Blood Pressure [or thostatic lying Le ft Arm] Blood Pressure [or thostatic sitting] Blood Pressure [or thostatic standing ] Pulse Oximetry 94 Oxygen Delivery Me thod Room Air 11/22/22 11:00 Temperature 98.5 F Pulse Rate Pulse Rate [Pulse Oximeter] 93 Pulse Rate [Right Pulse Oximeter] Pulse Rate [orthos tatic lying Pulse Oximeter] Respiratory Rate 16 Blood Pressure Blood Pressure [Le ft Arm] 113/60 Blood Pressure [Ri ght Upper Arm] Blood Pressure [or thostatic lying Le ft Arm] Blood Pressure [or thostatic sitting] Blood Pressure [or thostatic standing ] Pulse Oximetry 93 Oxygen Delivery Me thod Room Air Documenting provider has reviewed patient's vital signs: yes Labs Labs: Laboratory Results - last 24 hr 11/21/22 11/21/22 11/22/22 10:30 18:02 06:53 WBC 8.28 10.08 RBC 4.17 L 3.50 L Hgb 12.7 L 10.5 L Hct 37.3 31.4 L MCV 89 90 MCH 31 30 MCHC 34 33 RDW Coeff of Alyssa 14.3 Plt Count 171 201 Neut % (Auto) 85.6 H Lymph % (Auto) 8.6 L [place] % (Auto) 5.3 Eos % (Auto) 0.0 Baso % (Auto) 0.0 Neut # (Auto) 7.10 H Lymph # (Auto) 0.70 L [place] # (Auto) 0.40 Eos # (Auto) 0.00 Baso # (Auto) 0.00 Abs Immat Gran (auto) 0.04 Imm/Tot Granulo (auto) 0.5 Diff Slide Review Acceptable Review VBG pH 7.397 VBG pCO2 35 L VBG pO2 27.8 VBG HCO3 22 Sodium 138 139 Potassium 3.9 3.6 Chloride 110 112 Carbon Dioxide 20 22 BUN 47 H 36 H Creatinine 1.0 1.0 Estimated Creat Clear 51.39 Estimated GFR 75 75 Glucose 151 H 109 Lactate 1.7 0.8 Calcium 9.1 8.5 Phosphorus 3.3 Magnesium 1.8 1.7 Troponin I 0.02 C-Reactive Protein 0.7 4.4 H NT-Pro-B Natriuret Pep 141 Albumin 2.8 L TSH 0.828 Urine Color Yellow Urine Appearance Clear Urine pH 5.5 Ur Specific [place] >= 1.030 Urine Protein Negative Urine Glucose (UA) Negative Urine Ketones Negative Urine Blood Negative Urine Nitrite Negative Urine Bilirubin Negative Urine Urobilinogen 0.2 Ur Leukocyte Esterase Negative Urine RBC 0-2 Urine WBC 0-2 Ur Squamous Epith Cells None Urine Bacteria None Urine Yeast Few A
--- NOTE | 2022-11-22 13:33 | PC.NURSE ---
Called [facility] where patient currently lives. They stated that they would be able to take the patient back upon discharge with increased cares. Phone number for Alessandra at [facility] is [phone]. Will touch base with her tomorrow about discharge timing and further communication.
[2022-11-22] MEDS: NYSTATIN CREAM 30 GM 1 APPLIC TOPICAL ×2 (14:30→21:05)
[2022-11-22] MEDS: ATORVASTATIN 10 MG TABLET 20 MG PO (18:19)
[2022-11-23] VITALS (8 sets, daily range): BP systolic 118–137; BP diastolic 68–80; PULSE 70–89; RESP 16–20; TEMP 36.3–36.8; O2SAT 93–96
[2022-11-23 03:05] LABS: Fecal Occult Blood* Positive (Negative)
--- NOTE | 2022-11-23 06:31 | PC.NURSE ---
End of shift: Pt A&O to self and place. Pt is soft spoken but is able to answer most questions when given time to respond. VSS w/ sats>90% on RA. A1 w/ walker and gait belt. Pt needs queuing when transferring. Pt denies pain. Incontinent of stool and urine. Turn and repo q2h while in bed. ?
[2022-11-23] MEDS: OMEPRAZOLE 20 MG CAPSULE DR PO (07:47)
[2022-11-23 07:51] LABS: Eosinophils Absolute Auto 0.12 K/uL (0.00-0.50); Hematocrit 31.7 % (37.0-53.0); Hemoglobin* 10.6 gm/dL (13.5-17.5); Immature Granulocytes Abs Auto 0.01 K/uL (0.00-0.30); Immature Granulocytes Pct Auto 0.2 %; Lymphocytes Percent Auto 14.6 % (20-44); Mean Corpuscular HGB Conc 33 gm/dL (32-36); Mean Corpuscular Hemoglobin 30 pg (26-34); Mean Corpuscular Volume 91 fL (80-100); Monocytes Percent Auto 7.6 % (0.0-11.0); Neutrophils Percent Auto 75.6 % (42.0-72.0); Platelet Count* 190 K/uL (140-440); RDW Coefficient of Variation % 14.5 % (11.5-15.5); White Blood Count* 6.03 K/uL (4.50-11.00)
[2022-11-23 07:52] LABS: Slide Review Reflex No
[2022-11-23] MEDS: NYSTATIN CREAM 30 GM 1 APPLIC TOPICAL ×3 (08:01→20:32)
[2022-11-23 08:09] LABS: Chloride* 112 mmol/L (96-114); Potassium* 3.6 mmol/L (3.6-5.1); Sodium* 140 mmol/L (135-149)
[2022-11-23 08:11] LABS: Est. Creatinine Clearance* 51.39; Estimated Glomerular Filt Rate 75 ml/min
[2022-11-23 08:12] LABS: Blood Urea Nitrogen* 30 mg/dL (7-30); Calcium* 8.7 mg/dL (8.4-10.6); Carbon Dioxide* 26 mmol/L (20-32); Glucose* 95 mg/dL (60-115)
[2022-11-23] MEDS: levETIRAcetam 500 MG TABLET PO ×2 (09:06→20:32)
[2022-11-23] MEDS: SODIUM CHLORIDE 0.9 % (FLUSH) 10 ML SYRINGE 5 ML IVF ×2 (09:06→20:32)
[2022-11-23] MEDS: CARBIDOPA-LEVODOPA 25-100 TABLET 1 TAB PO ×3 (09:06→20:32)
--- NOTE | 2022-11-23 15:13 | P.IMPN_ITS ---
Progress Note: A&P Assessment and plan (1) Seizure disorder: Problem details: Clinically suspected based on recurrent episodes of unresponsiveness. Initiated on Keppra 11/21/2022. Concern now for Keppra causing excessive sedation Status: Suspected (2) Episode of altered consciousness: Problem details: Three episodes today. With prior history, differential diagnosis includes seizure, orthostatic autonomic event, syncope, and even REM sleep disorder versus narcolepsy with cataplexy. Doubt TIA, migraine, psychogenic nonepileptic seizure. The fact that the 3 episodes today occurred when he was either sitting or standing make me highly suspicious that this is related to orthostasis. Status: Acute (3) Snoring: Problem details: Known history of obstructive sleep apnea. Snoring reportedly occurred with each of the 3 episodes that occurred on 11/21/2022. Likely not protecting his airway when he was unconscious Status: Acute (4) Progressive supranuclear palsy: Problem details: Following [place]- neurology. Still not certain if progressive supranuclear palsy or Parkinson disease. MRI 07/02/2022 demonstrates midbrain atrophy, consistent with progressive supranuclear palsy. Status: Acute (5) Parkinson's disease: Problem details: Following [place]- neurology. Still not certain if progressive supranuclear palsy or Parkinson disease. MRI 07/02/2022 demonstrates midbrain atrophy, consistent with progressive supranuclear palsy. Status: Acute (6) Dehydration: Problem details: Dehydrated on admission. Improved Status: Acute (7) Altered mental status: Problem details: Decline in mental status in the last day possibly due to Keppra treatment causing sedation on top of his baseline poor mental functioning Status: Acute Plan Continue in hospital for evaluation management of altered mental status, recurrent spells or seizures and assessment for functional status. Currently now appears he will need higher level of care. Also evaluate melanotic stools with upper GI endoscopy. Hold aspirin for now. Initiate PPI. Monitor hemoglobin Time Spent With Patient Total time spent: Total time spent today is 35 minutes, 25 minutes in coordination of care discussing with patient's daughter and other providers management of GI bleeding and functional decline Subjective Date Seen: 11/23/22 Interval history: 81-year-old male admitted to the hospital with recurrent episodes of loss of consciousness yesterday. See admission note for detailed account of these 3 episodes. Cause for these is not entirely clear but seizure and syncope continue to be considerations. Each episode occurred when he was in upright position. Primarily manifested by loss of consciousness and rigidity without clonic movements. Was at [facility] last winter with similar events in the neurologist felt that this was probably not a seizure with normal EEG evaluat ion. On this occasion however given the frequent recurrences recommended starting Keppra. Patient has a limited ability to give history. History is primarily obtained from his daughter. She notes that he has been followed by [facility] for presumed Parkinson's disease. There is apparently some question of progressive supranuclear palsy as well. He has had ongoing decline in his functional status. He still lives in his assisted living with his significant other. He is having increasing need for assistance in that environment. Today patient is more sedated. Even less verbal than yesterday giving no words or phrases but just grunts in response to questions. Slow to arouse and has more mental slowing today. Daughter observed similar findings when she was there to visit. Appears to need care with all ADLs. Patient had melanotic stools. Tested to be guaiac positive. He did have a small drop in his hemoglobin. Does have a history of gastric ulcers. Currently on aspirin. Occasionally takes ibuprofen at home. Exam Narrative: Exam Narrative: He is sleepy and arouses to voice. Almost no verbal communication today. Head is normal without trauma. Eyes are normal. No upward gaze. Oropharynx is normal. Neck is supple without mass or adenopathy. Respirations are clear to auscultation. Cardiovascular: S1, S2, regular rate and rhythm. Abdomen is soft without tenderness or mass. Does not cooperate with testing strength in his extremities. No obvious focal weakness. Const: Vital Signs, click to edit/add: Vital Signs - 24 hr 11/22/22 19:42 11/22/22 20:10 11/22/22 23:16 Temperature 98.3 F 97.4 F L Pulse Rate 70 Pulse Rate [Pulse Oximeter] 82 90 Respiratory Rate 20 22 Blood Pressure [Le ft Arm] 132/71 123/69 Pulse Oximetry 94 95 Oxygen Delivery Me thod Room Air 11/22/22 23:23 11/23/22 03:00 11/23/22 07:10 Temperature Pulse Rate 76 Pulse Rate [Pulse Oximeter] 89 Respiratory Rate 22 20 Blood Pressure [Le ft Arm] 133/73 Pulse Oximetry 95 95 Oxygen Delivery Me thod Room Air Room Air 11/23/22 07:46 11/23/22 07:46 11/23/22 11:00 Temperature 97.6 F 98.2 F Pulse Rate Pulse Rate [Pulse Oximeter] 78 83 Respiratory Rate 18 18 18 Blood Pressure [Le ft Arm] 137/80 131/72 Pulse Oximetry 94 94 96 Oxygen Delivery Me thod Room Air Room Air Room Air Documenting provider has reviewed patient's vital signs: yes Labs Labs: Laboratory Results - last 24 hr 11/23/22 11/23/22 02:30 07:35 WBC 6.03 RBC 3.50 L Hgb 10.6 L Hct 31.7 L MCV 91 MCH 30 MCHC 33 RDW Coeff of Alyssa 14.5 Plt Count 190 Neut % (Auto) 75.6 H Lymph % (Auto) 14.6 L [place] % (Auto) 7.6 Eos % (Auto) 2.0 Baso % (Auto) 0.0 Neut # (Auto) 4.60 Lymph # (Auto) 0.90 [place] # (Auto) 0.50 Eos # (Auto) 0.12 Baso # (Auto) 0.00 Abs Immat Gran (auto) 0.01 Imm/Tot Granulo (auto) 0.2 Sodium 140 Potassium 3.6 Chloride 112 Carbon Dioxide 26 BUN 30 Creatinine 1.0 Estimated Creat Clear 51.39 Estimated GFR 75 Glucose 95 Calcium 8.7 Stool Occult Blood Positive
[2022-11-23] MEDS: ATORVASTATIN 10 MG TABLET 20 MG PO (18:01)
--- NOTE | 2022-11-23 18:25 | PC.NURSE ---
Pt calm, tired, and cooperative during shift. VSS. Pt one assist with walker. Pt had no complaints of pain. Pt up to chair.?Pt takes medications whole. Pt was able to feed himself for breakfast, refused lunch and staff assisted with supper. During early afternoon to mid evening Pt was very tired and hard to wake up. Hospitalist updated. Pt perked back up around 1700. Pt was talking to staff again and able to keep eyes open.?
[2022-11-24] VITALS (9 sets, daily range): BP systolic 103–146; BP diastolic 64–81; PULSE 86–101; RESP 14–18; TEMP 36.3–36.9; O2SAT 93–97
[2022-11-24] MEDS: OMEPRAZOLE 20 MG CAPSULE DR PO (06:15)
--- NOTE | 2022-11-24 06:24 | PC.NURSE ---
End of shift:Pt Alert to self. Confused, but pleasant and able to follow directions. VSS w/ sats >90% on RA. A1-2 w/ walk and gait belt. Pt needs to be queued when transferring.?Pt used call light x2 indicating a wet pad. Inc of both stool and urine. Turn and repo q2h while in bed.
[2022-11-24 06:33] LABS: Eosinophils Absolute Auto 0.13 K/uL (0.00-0.50); Eosinophils Percent Auto 1.9 % (0.0-7.0); Hematocrit 31.8 % (37.0-53.0); Hemoglobin* 10.7 gm/dL (13.5-17.5); Immature Granulocytes Abs Auto 0.01 K/uL (0.00-0.30); Immature Granulocytes Pct Auto 0.1 %; Lymphocytes Percent Auto 13.4 % (20-44); Mean Corpuscular HGB Conc 34 gm/dL (32-36); Mean Corpuscular Hemoglobin 31 pg (26-34); Mean Corpuscular Volume 91 fL (80-100); Monocytes Percent Auto 7.1 % (0.0-11.0); Neutrophils Percent Auto 77.5 % (42.0-72.0); Platelet Count* 196 K/uL (140-440); RDW Coefficient of Variation % 14.4 % (11.5-15.5); Red Blood Count 3.51 m/uL (4.30-5.90); White Blood Count* 6.72 K/uL (4.50-11.00)
[2022-11-24 06:34] LABS: Slide Review Reflex No
[2022-11-24] MEDS: NYSTATIN CREAM 30 GM 1 APPLIC TOPICAL ×3 (07:53→21:27)
[2022-11-24] MEDS: LACTATED RINGERS 1000 ML 1,000 ML 125 ML IV (07:53)
[2022-11-24] MEDS: CARBIDOPA-LEVODOPA 25-100 TABLET 1 TAB PO ×3 (08:35→21:27)
[2022-11-24] MEDS: levETIRAcetam 500 MG TABLET PO ×2 (08:35→21:27)
--- NOTE | 2022-11-24 10:29 | PM.IMPN1 ---
Progress Note: A&P Assessment and plan (1) Seizure disorder: Problem details: Clinically suspected based on recurrent episodes of unresponsiveness. Initiated on Keppra 11/21/2022. No further spells or evidence of seizures Status: Suspected (2) Episode of altered consciousness: Problem details: Three episodes prior to admission. With prior history, differential diagnosis includes seizure, orthostatic autonomic event, syncope, and even REM sleep disorder versus narcolepsy with cataplexy. Doubt TIA, migraine, psychogenic nonepileptic seizure. The fact that the 3 episodes today occurred when he was either sitting or standing make me highly suspicious that this is related to orthostasis. No episodes since being hospitalized Status: Acute (3) Snoring: Problem details: Known history of obstructive sleep apnea. Snoring reportedly occurred with each of the 3 episodes that occurred on 11/21/2022. Likely not protecting his airway when he was unconscious Status: Acute (4) Progressive supranuclear palsy: Problem details: Following [place]- neurology. Still not certain if progressive supranuclear palsy or Parkinson disease. MRI 07/02/2022 demonstrates midbrain atrophy, consistent with progressive supranuclear palsy. Status: Acute (5) Parkinson's disease: Problem details: Following [place]- neurology. Still not certain if progressive supranuclear palsy or Parkinson disease. MRI 07/02/2022 demonstrates midbrain atrophy, consistent with progressive supranuclear palsy. Clinically appears to have progressive supranuclear palsy Status: Acute (6) Dehydration: Problem details: Dehydrated on admission. Improved Status: Acute (7) Altered mental status: Problem details: Fluctuating level of consciousness. This is thought possibly due to Keppra but patient has this prior to this admission and institution of Keppra therapy. His daughter notes that he has days where he just appears to be unresponsive for periods of time. Likely due to degenerative brain disease. Status: Acute (8) GI bleed: Problem details: Patient had melanotic stools with small drop in hemoglobin. Plan was for EGD today. After discussing with daughter the decision is to forego EGD or any further evaluation today as we are transitioning to palliative care. For now will continue to treat with a PPI and hold his aspirin. Status: Acute Plan Patient will continue in hospital pending discharge plan. Probably will need intermediate facility. Begin discussion about palliative care and hospice. Time Spent With Patient Total time spent: Total time spent today is 40 minutes, 30 minutes in coordination of care and discussing with patient's daughter and other providers ongoing plan of care regarding disability, bleeding, palliative care Subjective Date Seen: 11/24/22 Interval history: 81-year-old male admitted to the hospital with recurrent episodes of loss of consciousness on the day of admission. See admission note for detailed account of these 3 episodes. Cause for these is not entirely clear but seizure and syncope continue to be considerations. Each episode occurred when he was in upright position. Primarily manifested by loss of consciousness and rigidity without clonic movements. Was at [facility] last winter with similar events in the neurologist felt that this was probably not a seizure with normal EEG evaluation. On this occasion however given the frequent recurrences recommended starting Keppra. Patient has a limited ability to give history. History is primarily obtained from his daughter. She notes that he has been followed by [facility] for presumed Parkinson's disease. There is apparently some question of progressive supranuclear palsy as well. He has had ongoing decline in his functional status. He still lives in his assisted living with his significant other. He is having increasing need for assistance in that environment. Patient had melanotic stools. Tested to be guaiac positive. He did have a small drop in his hemoglobin. Does have a history of gastric ulcers. Currently on aspirin. Occasionally takes ibuprofen at home. Overnight hemoglobin has been stable and he has not been having any further bleeding. Yesterday he was quite sedated. Today he is more alert. Still speaking in minimal amounts but able to communicate in phrases with his soft voice and answer questions and follow simple instructions. I spoke with his daughter about plan of care and goals of care. We both feel that he likely needs to be and a higher level of care where he can get 24 hour a day 7 day a week assistance with all his ADLs. She also feels that his quality of life and prognosis is quite poor and is interested in hospice. I think this is appropriate as his prognosis is less than 6 months. My impression is that he has progressive supranuclear palsy, a progressive disabling neurologic condition. Exam Narrative: Exam Narrative: He is alert and appears in no distress. He follows me with his eyes. Still has no upward gaze. No facial asymmetry. Oropharynx with dry mucous membranes. Respirations are clear to auscultation. Cardiovascular: S1, S2, regular rate and rhythm. Abdomen: Bowel sounds active. Abdomen is soft without tenderness. Extremities without edema. He is relatively some symmetric strength in his upper and lower extremities. Const: Vital Signs, click to edit/add: Vital Signs - 24 hr 11/23/22 11:00 11/23/22 15:00 11/23/22 15:00 Temperature 98.2 F 97.3 F L Pulse Rate [Pulse Oximeter] 83 70 Respiratory Rate 18 16 16 Blood Pressure [Le ft Arm] 131/72 118/71 Pulse Oximetry 96 96 96 Oxygen Delivery Me thod Room Air Room Air Room Air 11/23/22 20:01 11/23/22 23:28 11/23/22 23:30 Temperature 97.8 F 97.8 F Pulse Rate [Pulse Oximeter] 77 81 Respiratory Rate 20 18 18 Blood Pressure [Le ft Arm] 130/68 123/77 Pulse Oximetry 95 93 93 Oxygen Delivery Me thod Room Air Room Air Room Air 11/24/22 04:02 11/24/22 07:35 11/24/22 07:35 Temperature 97.6 F 98.1 F Pulse Rate [Pulse Oximeter] 86 86 Respiratory Rate 18 18 18 Blood Pressure [Le ft Arm] 113/70 141/81 H Pulse Oximetry 93 97 97 Oxygen Delivery Me thod Room Air Room Air Room Air Documenting provider has reviewed patient's vital signs: yes Labs Labs: Laboratory Results - last 24 hr 11/24/22 05:50 WBC 6.72 RBC 3.51 L Hgb 10.7 L Hct 31.8 L MCV 91 MCH 31 MCHC 34 RDW Coeff of Alyssa 14.4 Plt Count 196 Neut % (Auto) 77.5 H Lymph % (Auto) 13.4 L [place] % (Auto) 7.1 Eos % (Auto) 1.9 Baso % (Auto) 0.0 Neut # (Auto) 5.20 Lymph # (Auto) 0.90 [place] # (Auto) 0.50 Eos # (Auto) 0.13 Baso # (Auto) 0.00 Abs Immat Gran (auto) 0.01 Imm/Tot Granulo (auto) 0.1
--- NOTE | 2022-11-24 13:51 | PC.SOCIAL ---
Discharge planning- Met with pt and pt's daughter (Linette) to discuss discharge plans. Linette informs that the MD was just in the room and it was decided that pt would go to a SNF for manager long term care placement with hospice in place. Linette prefers [facility] if possible. Regarding placement discussed that pt would likely be private pay since pt will be going on hospice and not under skilled rehab. Linette informs that she is aware and ok with this. Pt's daughter prefers to check with [facility] in [place], SNF's in [place], and [facility] in [place]. Informed that [facility] does not have openings at this time. Contacted the following SNF's and hospice providers. 1. [facility]- Phone call to Maribel. [facility] can accept pt and asks that this worker keep them updated on placement and discharge. 2. [facility]- Phone call to Florencio in admissions. There are no openings. Earliest opening is potentially Thursday. 3. [facility]- Not accepting referrals. 4. [facility]- Phone call to Tanja in admissions. There is an opening for tomorrow and Tanja requests that this worker send referral for review. Secure e-mailed referral to [facility]. 5. [facility] in [place]- Phone call to admissions, left voicemail. Faxed referral to [phone]. Provided update to charge nurse on [facility]. Phone call to pt's daughter (Linette) to provide an update on hospice and placement. Linette informs that pt is asking for last rites. Informed Linette that family can reach out to their congregational or any congregational in the community as there is not a track walker on staff every day of the week. Linette informs that they are ok with waiting until Thursday when the track walker is in because they do not have a specific congregational at the moment. This worker will follow up with Chaplain Mancilla on Thursday AM. Social work will continue to follow up as needed.
--- NOTE | 2022-11-24 14:17 | PC.NURSE ---
Pt calm, pleasant and cooperative during shift. Pt one assist with walker and gait belt. Pt had no complaints of pain. Pt up to chair.?Pt was talking and joking during interactions with production underwriter during shift. Pt takes pills whole. Pt napped for a short time in early afternoon. Pt had family at bedside during parts of shift. Pt using call light appropriately. ?
[2022-11-24] MEDS: ATORVASTATIN 10 MG TABLET 20 MG PO (17:41)
--- NOTE | 2022-11-24 19:44 | PC.NURSE ---
[id number]: Pt pleasant and cooperative. Answering questions appropriately. A1 w/ walker and gait belt. Inc of both urine and stool. Pt reported pain at IV site. IV was bleeding and puffy. IV removed w/ tip intact. Call light within reach.
[2022-11-25 07:00] VITALS: BP 118/65; PULSE 81; RESP 18; TEMP 36.6; O2SAT 95
[2022-11-25 07:00] LABS: Eosinophils Absolute Auto 0.14 K/uL (0.00-0.50); Eosinophils Percent Auto 2.3 % (0.0-7.0); Hematocrit 32.5 % (37.0-53.0); Immature Granulocytes Abs Auto 0.01 K/uL (0.00-0.30); Immature Granulocytes Pct Auto 0.2 %; Lymphocytes Percent Auto 14.8 % (20-44); Mean Corpuscular HGB Conc 34 gm/dL (32-36); Mean Corpuscular Hemoglobin 31 pg (26-34); Mean Corpuscular Volume 90 fL (80-100); Monocytes Percent Auto 7.9 % (0.0-11.0); Neutrophils Percent Auto 74.8 % (42.0-72.0); Platelet Count* 233 K/uL (140-440); White Blood Count* 6.22 K/uL (4.50-11.00)
[2022-11-25] MEDS: OMEPRAZOLE 20 MG CAPSULE DR PO (07:03)
[2022-11-25 07:24] LABS: Slide Review Reflex No
--- NOTE | 2022-11-25 07:34 | PC.NURSE ---
Patient alert and oriented to self and date. Reported pain to left elbow with movement, no visible injury. Patient reports that pain is tolerable. Right eye noted to have small amount of thick, yellow drainage in inner corner, warm cloths applied to eyes. Patient denies any pain or itching to eyes. Turned and repositioned q 2 hours, redness to groin, scrotum and gluteal cleft continues. Dayana area cleansed well with each brief change and creams utilized per orders. Utilizes call light appropriately.
[2022-11-25] MEDS: NYSTATIN CREAM 30 GM 1 APPLIC TOPICAL (08:31)
[2022-11-25] MEDS: levETIRAcetam 500 MG TABLET PO (08:31)
[2022-11-25] MEDS: CARBIDOPA-LEVODOPA 25-100 TABLET 1 TAB PO (08:31)
[2022-11-25 10:00] VITALS: BP 118/65; PULSE 81; RESP 18; TEMP 36.6
--- NOTE | 2022-11-25 10:34 | PM.DS1 ---
DS: Providers Provider Date Seen: 11/25/22 Date of admission: 11/21/22 20:59 Primary care physician: Janina Donald PA-C Admitting Clinician: Gerber Cade MD Attending Physician on discharge: Omar Reich MD Date of Discharge: 11/25/22 DS: Diagnosis Discharge Diagnosis (1) Seizure disorder: Status: Suspected Problem details: Clinically suspected based on recurrent episodes of unresponsiveness. Initiated on Keppra 11/21/2022. No further spells or evidence of seizures during hospital stay. (2) Episode of altered consciousness: Status: Acute Problem details: Three episodes prior to admission. With prior history, differential diagnosis includes seizure, orthostatic autonomic event, syncope, and even REM sleep disorder versus narcolepsy with cataplexy. Doubt TIA, migraine, psychogenic nonepileptic seizure. The fact that the 3 episodes today occurred when he was either sitting or standing make me highly suspicious that this is related to orthostasis. No episodes since being hospitalized. (3) Altered mental status: Status: Acute Problem details: Fluctuating level of consciousness. This is thought possibly due to Keppra but patient has this prior to this admission and institution of Keppra therapy. His daughter notes that he has days where he just appears to be unresponsive for periods of time. Likely due to degenerative brain disease. (4) Progressive supranuclear palsy: Status: Acute Problem details: Following [place]- neurology. Still not certain if progressive supranuclear palsy or Parkinson disease. MRI 07/02/2022 demonstrates midbrain atrophy, consistent with progressive supranuclear palsy. (5) Parkinson's disease: Status: Acute Problem details: Following [place]- neurology. Still not certain if progressive supranuclear palsy or Parkinson disease. MRI 07/02/2022 demonstrates midbrain atrophy, consistent with progressive supranuclear palsy. Clinically appears to have progressive supranuclear palsy (6) Snoring: Status: Acute Problem details: Known history of obstructive sleep apnea. Snoring reportedly occurred with each of the 3 episodes that occurred on 11/21/2022. Likely not protecting his airway when he was unconscious (7) GI bleed: Status: Acute Problem details: Patient had melanotic stools with small drop in hemoglobin. Plan was for EGD today. After discussing with daughter the decision is to forego EGD or any further evaluation today as we are transitioning to palliative care. For now will continue to treat with a PPI and hold his aspirin and ibuprofen. DS: Summary Hospital Course Hospital Course: 81-year-old male admitted to the hospital having had 3 episodes of loss of consciousness prior to admission. Patient had observed episodes where he lost consciousness, became rigid but without shaking. These were all while he was upright and they were all self-limited. Had similar episodes where he was hospitalized at [facility] last winter and had an unremarkable EEG at that time. After consultation with Neurology decision was made to initiate Keppra for possible seizure disorder. He was observed in the hospital without further episodes. He was however found to be fairly disabled from neurologic disease and felt that he needed a higher level of care. 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 Clinically it appears that he has progressive supranuclear palsy as the primary cause of his disability. In light of this he he and his daughter have agreed to moved to palliative care and our enrolling in hospice. A time admission he was found to have melanotic stools that were guaiac positive. Hemoglobin is monitored and had a small drop in his hemoglobin but no significant hypotension. Initial plan was to evaluate with upper endoscopy but after discussion with his daughter about goals of care the decision was made to simply treat him for upper GI bleeding with a proton pump inhibitor and to stop his aspirin and ibuprofen. No further evaluation at this time is warranted. Status at Discharge Functional status at discharge: wheelchair bound Overall status at discharge: patient is not back to baseline Time Spent with Patient Time attestation: Total time spent providing and/or coordinating discharge services: Time spent: Greater than 30 minutes Exam Narrative: Exam Narrative: He is alert and appears in no distress. He answers questions slowly but appropriately with a soft voice. He lacks upward gaze. Relatively mask face ease. Respirations are clear to auscultation. Cardiovascular: S1, S2, regular rate and rhythm. Abdomen is soft without tenderness or mass. Const: Vital Signs, click to edit/add: Vital Signs - 24 hr 11/24/22 11:00 11/24/22 15:00 11/24/22 15:17 Temperature 97.9 F 98.5 F Pulse Rate [Pulse Oximeter] 88 87 Respiratory Rate 18 18 18 Blood Pressure [Le ft Arm] 103/65 132/64 Blood Pressure [or thostatic lying Le ft Arm] Blood Pressure [or thostatic sitting] Blood Pressure [or thostatic standing ] Pulse Oximetry 94 95 95 Oxygen Delivery Me thod Room Air Room Air Room Air 11/24/22 16:14 11/24/22 19:00 11/24/22 23:00 Temperature 97.4 F L Pulse Rate [Pulse Oximeter] 101 H Respiratory Rate 14 Blood Pressure [Le ft Arm] 143/77 H Blood Pressure [or thostatic lying Le ft Arm] 125/67 Blood Pressure [or thostatic sitting] 141/73 H Blood Pressure [or thostatic standing ] 146/69 H Pulse Oximetry 95 95 Oxygen Delivery Me thod Room Air Room Air 11/24/22 23:27 11/25/22 07:00 11/25/22 07:00 Temperature 97.8 F Pulse Rate [Pulse Oximeter] 81 Respiratory Rate 14 18 18 Blood Pressure [Le ft Arm] 118/65 Blood Pressure [or thostatic lying Le ft Arm] Blood Pressure [or thostatic sitting] Blood Pressure [or thostatic standing ] Pulse Oximetry 95 95 Oxygen Delivery Il thod Room Air Room Air Documenting provider has reviewed patient's vital signs: yes DS: Data Data Completed and Pending Labs on day of discharge: Labs from last 24 hours 11/25/22 06:15 WBC 6.22 RBC 3.60 L Hgb 11.0 L Hct 32.5 L MCV 90 MCH 31 MCHC 34 RDW Coeff of Alyssa 14.0 Plt Count 233 Neut % (Auto) 74.8 H Lymph % (Auto) 14.8 L [place] % (Auto) 7.9 Eos % (Auto) 2.3 Baso % (Auto) 0.0 Neut # (Auto) 4.70 Lymph # (Auto) 0.90 [place] # (Auto) 0.50 Eos # (Auto) 0.14 Baso # (Auto) 0.00 Abs Immat Gran (auto) 0.01 Imm/Tot Granulo (auto) 0.2 Discharge Plan Discharge Disposition: [facility] Date of Admission: 11/21/22 20:59 Attending Provider on Discharge: Khanh Reich Primary Care Provider: Janina Donald Condition: Stable Discharge Medications: New acetaminophen 325 mg Tablet 650 mg PO QID PRNQty: 100 0RF levetiracetam 500 mg Tablet 500 mg PO BID Qty: 60 0RF nystatin 100,000 unit/gram Cream 1 applic topical TID Qty: 45 0RF omeprazole 20 mg Capsule,Delayed Release(Dr/Ec) 20 mg PO DAILY@0700 Qty: 30 0RF Continued cholecalciferol (vitamin D3) 125 mcg (5,000 unit) tablet 5,000 unit PO DAILY atorvastatin 20 mg tablet 20 mg PO QPM Qty: 90 4RF carbidopa-levodopa 25-100 mg tablet 1 tab PO TID Qty: 270 1RF metronidazole 1 % gel 1 applic topical QDAY Qty: 60 3RF Discontinued ibuprofen [Advil] 200 mg tablet 400 mg PO Q8H PRN aspirin 81 mg tablet,delayed release (DR/EC) 81 mg PO QDAY clotrimazole-betamethasone 1-0.05 % cream 1 applic topical BID PRN (Reason: jock itch) 14 Days Qty: 45 2RF Discharge Orders: Discharge Order (Routine); Ordered 11/25/22 Ordered By: Khanh Reich Activity Level: Up with assist and Use Walker Discharge Diet: Regular Follow Up Appointments: Janina Donald PA-C [Primary Care Provider] - Admit to: SNF Discharge Potential: Poor Length of Stay: >90 days Can use facility standing orders?: Yes Code Status: DNR/DNI Rehab Potential: Poor Oxygen: No Hospice Evaluate and Admit: yes, referred to hospice Orders are good >30 days: Yes
--- NOTE | 2022-11-25 10:51 | PC.NURSE ---
Primary RN spoke with Princess CORONA from [facility] ([phone]) regarding information on [facility] for possible transfer to their facility. Patient accepted by facility, disharge to SNF completed in preparation for non-emergent EMS transport. Daughter Linette is POA and was notified at of pending discharge. Pt will be HOSPICE care when he arrives at [facility]. No inappropiate behaviors. No dysphagia with am med pass. Sig other Ellie is present at [facility] beside, pt sleeping and appears comfortable.
[2022-11-25 11:05] VITALS: BP 140/77; PULSE 85; RESP 18; TEMP 36.8; O2SAT 96
--- NOTE | 2022-11-25 11:06 | PC.SOCIAL ---
Addendum entered by DARVIN Mendez 11/25/22 15:39: Received a voicemail from Maritza at [facility] at [phone]. Maritza is requesting an update on pt. Phone call back to Maritza at [facility]. Provided an update on pt's status and discharge. Addendum entered by DARVIN Mendez 11/25/22 11:50: Received verbal acknowledgement from pt's daughter (Linette) to bill for EMS charges for non-emergency ambulance transport to [facility]. Completed form and provided to EMS. Original Note: Discharge planning- Received a phone call from Tanja in admissions at [facility] ([phone]). [facility] accepted pt for admission for today. Pt will have to private pay $5,000.00 today. Phone call to pt's daughter (Linette) and provided update. Linette is fine with the payment amount and would like pt to go to [facility]. Provided Linette with contact information for [facility] to complete admission paperwork. Pt will transport via non-emergency ambulance. Updated charge nurse. Phone call to Maribel at [facility] (Ext. [phone]) and provided update. Maribel will work with [facility] to start hospice services. Faxed Providers Certification for Medicare Hospice Benefit to [facility] at [phone]. Provided update to charge nurse. Charge nurse set non-emergency ambulance transport for 11:30 am. Updated [facility], pt's daughter (Linette), and [facility]. Completed preadmission screening. Confirmation #[id number].
--- NOTE | 2022-11-25 11:45 | PC.NURSE ---
Discharged via stretcher at 11:40 pm per non-urgent EMS transport to [facility]. Personal belongings sent with patient's sig other Ellie and her ride Jen.
== END 2022-11-25 11:40 | DRG 101 ==
LOC: ED 19:16 → MEDSURG 20:44
PROVIDERS: Family Medicine; Admitting Provider Internal Medicine; Emergency Provider Family Medicine; PCP Physician Assistant Medical; Visit Provider Internal Medicine
DX: G40.909 Epilepsy, unspecified, not intractable, without status epilepticus (principal); G23.1 Progressive supranuclear ophthalmoplegia [Steele-Richardson-Olszewski]; K92.1 Melena; G20 Parkinson's disease; R40.4 Transient alteration of awareness; R26.81 Unsteadiness on feet; Z91.81 History of falling; R29.6 Repeated falls; W18.30XA Fall on same level, unspecified, initial encounter; Y92.099 Unspecified place in other non-institutional residence as the place of occurrence of the external cause; G47.33 Obstructive sleep apnea (adult) (pediatric); R06.83 Snoring; E86.0 Dehydration; Z85.46 Personal history of malignant neoplasm of prostate
CPT/HCPCS: 36415; 71045; 80048; 80069; 81001; 82270; 82803; 83605; 83735; 83880; 84443; 84484; 85025; 85027; 86140; 87081; 93005; 97110; 97116; 97162; 97165; 97530; 97535; 99284; 99285; A9270; J1953; J7030; J7050; J7120

== ENCOUNTER 2022-11-25 11:36 | Outpatient (CLI) | payer OTHER, SELFPAY ==
--- OUTSIDE RECORDS SUMMARY | 2022-11-28 19:48 | XMS_ITS | Continuity of Care Document ---
Author Name Unknown Organization [facility] Address [address] [place] [address] Phone Care Team Providers Care Immunochemist Name Role Phone Dennis Verdin Unavailable Unavailable Allergies, Adverse Reactions, Alerts Substance Reaction Status Criticality No Known Allergies Active No Inform ation Medications Medication Instructions Dosage Effective Dates (start - stop) Status Comments CARBIDOPA-LEVODOPA (unknown strength) Not Available - Active ATORVASTATIN CALCIUM (unknown strength) Not Available - Active Procedures Procedure Date Office/Outpatient Visit,[facility] 2020 Advance Directives Directive Yes / No Effective Date File Name No Information Encounters Encounter Description Practice Location Reason(s) For Visit Diagnoses Date Provider Providers Copied on Encounter Office/Outpati ent Visit,[facility], [address], [place], [place], [id number], [place] tel:[phone] [facility] [place] Other spondylosis , lumbar regionLow back pain Zi Collins. [facility], [address] [place] [address], [place] [address], [place], [place], [id number], [place]. tel:[phone] Referring Provider: Dennis Meza, [facility] [address], [facility] [address], [place], [address]. tel:[phone] Family History Family Member Type Diagnosis Age At Onset No Information Payers Payer name Insurance type Covered green party ID Authoriza tion(s) [employer] Medicare Gold Choice Rin CHEEMA [id number] Social History Type Description Quantity Date [...]
== END 2022-11-25 11:37 | disposition home or self-care (01) ==
PROVIDERS: PCP Physician Assistant Medical; Visit Provider Family Medicine
DX: Z99.3 Dependence on wheelchair (principal); G20 Parkinson's disease
CPT/HCPCS: A0425; A0428